=== PATIENT | female | born 2000 | race African-American/Black ===

== ENCOUNTER 2019-03-05 00:35 | Emergency (ER) | payer MEDICAID ==
--- NOTE | 2019-03-05 01:14 | ER Document Report ---
ED GI/ - General Chief Complaint: OB Problem (<20wks) Stated Complaint: VAGINAL BLEEDING Time Seen by Provider: 03/05/19 01:12 Mode of Arrival: Ambulatory Information source: Patient Notes: HISTORY OF PRESENT ILLNESS: Patient is a 18-year-old female at approximately 12 to 14 weeks by last menstrual period with no significant past medical history who presents with lower abdominal cramping with vaginal bleeding and passage of tissues that occurred prior to arrival. Patient reports that she had a miscarriage in September of this year, had similar symptoms but ended up having "miscarriage at home." She reports that she had both bright red blood as well as dark clots and believes she passed tissue into the toilet. Location: Abdomen, pelvis Onset: Prior to arrival Provocation: Unknown Quality: Cramping Radiation: None Severity: Mild to moderate Timing: Resolved LMP: "The middle of November" Associated symptoms: Denies fevers or chills, no nausea or vomiting, no abdominal injuries, no vaginal discharge REVIEW OF SYSTEMS: CONSTITUTIONAL : Denies fever or chills, no sweats. Denies recent illness. EENT: Denies eye, ear, throat, or mouth pain or symptoms. Denies nasal or sinus congestion. CARDIOVASCULAR: Denies chest pain. RESPIRATORY: Denies cough, cold, or chest congestion. Denies shortness of breath, difficulty breathing, or wheezing. GASTROINTESTINAL: Denies abdominal pain. Denies nausea, vomiting, or diarrhea. Denies constipation. GENITOURINARY: Positive for vaginal bleeding and passage of tissues. Denies difficulty urinating, painful urination, burning, frequency, or blood in urine. MUSCULOSKELETAL: Denies neck or back pain or joint pain or swelling. SKIN: Denies rash or skin lesions. HEMATOLOGIC : Denies easy bruising or bleeding. LYMPHATIC: Denies swollen, enlarged glands. NEUROLOGICAL: Denies altered mental status or loss of consciousness. Denies headache. Denies weakness or paralysis or loss of use of either side. Denies problems with gait or speech. Denies sensory or motor loss. PSYCHIATRIC: Denies anxiety or stress or depression. All other systems reviewed and negative. PHYSICAL EXAMINATION: GENERAL: Well-appearing, well-nourished and in no acute distress. HEAD: Atraumatic, normocephalic. No scalp deformity, depression, or crepitance. EYES: Pupils are 3 mm and equal/round/reactive to light, extraocular movements intact, sclera anicteric, conjunctiva are normal. ENT: Nares patent bilaterally, oropharynx clear without exudates or palatal petechia. Moist mucous membranes. No tonsil hypertrophy. NECK: Normal range of motion, supple without lymphadenopathy. LUNGS: Breath sounds present, equal, and clear to auscultation bilaterally. No wheezes, rales, or rhonchi. HEART: Regular rate and rhythm without murmurs, rubs, or gallops. 2+ peripheral pulses. Normal capillary refill. ABDOMEN: Soft, nontender, nondistended. Normoactive bowel sounds. No guarding, no rebound. No masses appreciated. BACK: Normal contour, no midline tenderness. Rectal exam deferred. PELVC: Deferred. EXTREMITIES: Normal range of motion, no pitting or edema. No cyanosis. NEUROLOGICAL: No focal neurological deficits. Moves all extremities spontaneously and on command. PSYCH: Normal mood, normal affect. No suicidal thoughts/ideations. No homicidal thoughts/ideations. No hallucinations. SKIN: Warm, dry, normal turgor, no rashes or lesions noted. ASSESSMENT AND PLAN: This patient is a 18-year-old female who presents with vaginal bleeding and passage of tissues that could represent spontaneous , incomplete versus inevitable versus complete. 1. Will obtain labs, urine, quantitative beta-hCG, and ultrasound. 2. Will reassess. TRAVEL OUTSIDE OF THE [place] IN LAST 30 DAYS: No - HPI Patient complains to provider of: Abdominal pain, , Vaginal bleeding, Vaginal pain Onset: Just prior to arrival Timing/Duration: Sudden Quality of pain: Cramping Severity at maximum: Moderate Severity in ED: Mild Pain Level: Denies Location: Pelvis, Vaginal Vaginal bleeding (Compared to normal period): Vegetable Cutter, Dark brown, Passing tissue Menstrual period history: OB ultrasound done: No vitamins taken: No Sexual history: Active Exacerbated by: Denies, Standing Similar symptoms previously: No Recently seen / treated by doctor: No Past Medical History - General Information source: Patient - Social History Smoking Status: Former Smoker Chew tobacco use (# tins/day): No Frequency of alcohol use: None Drug Abuse: None Lives with: Family Family History: Reviewed & Not Pertinent Patient has suicidal ideation: No Patient has homicidal ideation: No - Past Medical History Cardiac Medical History: Reports: None Pulmonary Medical History: Reports: None EENT Medical History: Reports: None Neurological Medical History: Reports: None Endocrine Medical History: Reports: None Renal/ Medical History: Reports: Other - History of miscarriage Malignancy Medical History: Reports: None GI Medical History: Reports: None Musculoskeletal Medical History: Reports None Skin Medical History: Reports None Psychiatric Medical History: Reports: None Traumatic Medical History: Reports: None Infectious Medical History: Reports: None Surgical Hx: Negative Past Surgical History: Reports: None - Immunizations Immunizations up to date: Yes Hx Diphtheria, Pertussis, Tetanus Vaccination: Yes Review of Systems - Review of Systems Constitutional: No symptoms reported EENT: No symptoms reported Cardiovascular: No symptoms reported Respiratory: No symptoms reported Gastrointestinal: No symptoms reported Genitourinary: No symptoms reported Female Genitourinary: See HPI, , Vaginal bleeding Musculoskeletal: No symptoms reported Skin: No symptoms reported Hematologic/Lymphatic: No symptoms reported Neurological/Psychological: No symptoms reported -: Yes All other systems reviewed and negative Physical Exam - Vital signs Vitals: Temp Pulse Resp BP Pulse Ox 98 F 74 16 116/74 98 03/05/19 00:44 03/05/19 00:44 03/05/19 00:44 03/05/19 00:44 03/05/19 00:44 Interpretation: Normal Course - Re-evaluation Re-evalutation: 03/05/19 04:04 Ultrasound confirms completed . Will discharge the patient home with strict return precautions and follow-up with [facility]. All results were explained to and discussed with the patient, and all questions addressed and answered. The patient voices both understanding and agreeing with the plan. - Vital Signs Vital signs: Temp Pulse Resp BP Pulse Ox 98 F 74 16 116/74 98 03/05/19 00:44 03/05/19 00:44 03/05/19 00:44 03/05/19 00:44 03/05/19 00:44 - Laboratory Result Diagrams: 03/05/19 01:32 03/05/19 01:32 Laboratory results interpreted by me: 03/05/19 03/05/19 01:32 01:32 RDW 15.0 H Lymph % (Auto) 46.7 H Urine Protein 100 H Urine Ketones TRACE H Urine Blood LARGE H Urine Urobilinogen 2.0 H Ur Leukocyte Esterase TRACE H - Diagnostic Test Radiology reviewed: Image reviewed, Reports reviewed Discharge - Discharge Clinical Impression: Spontaneous in first trimester Condition: Good Disposition: HOME, SELF-CARE Instructions: Miscarriage (OM) Additional Instructions: You have been evaluated in the Emergency Department for vaginal bleeding. While here, you had an ultrasound that confirms that she had a miscarriage and it is now safe to be discharged home. Please follow-up with your SH[facility] WORKER as instructed in one week to be rechecked. Return to the Emergency Department if you experience increasing pain, increasing bleeding, or any other concerning symptoms. Print Language: Somali
[2019-03-05 01:44] LABS: ABSOLUTE EOSINOPHILS # (AUTO) 0.1 10^3/uL (0.0-0.6); ABSOLUTE LYMPHOCYTES (AUTO) 2.3 10^3/uL (0.5-4.7); ABSOLUTE MONOCYTES (AUTO) 0.4 10^3/uL (0.1-1.4); ABSOLUTE NEUT (AUTO) 2.2 10^3/uL (1.7-8.2); BASOPHILS % (AUTO) 0.4 % (0-2); EOSINOPHILS % (AUTO) 1.8 % (0-6); HEMATOCRIT 37.1 % (36.0-47.0); HEMOGLOBIN 12.4 g/dL (12.0-15.5); LYMPHOCYTES % (AUTO) 46.7 % (13-45); MEAN CORPUSCULAR HGB CONC 33.3 g/dL (32.0-36.0); MEAN CORPUSCULAR VOLUME 90 fl (80-97); MONOCYTES % (AUTO) 8.2 % (3-13); PLATELET COUNT 246 10^3/uL (150-450); RED BLOOD COUNT 4.12 10^6/uL (3.72-5.28); SEGMENTED NEUTROPHILS % (AUTO) 42.9 % (42-78); TOTAL CELLS COUNTED % (AUTO) 100 %
[2019-03-05 02:02] LABS: ALBUMIN 4.1 g/dL (3.7-5.6); ALKALINE PHOSPHATASE 71 U/L (50-135); ANION GAP 7 (5-19); ASPARTATE AMINO TRANSFERASE 21 U/L (5-30); BILIRUBIN,TOTAL 0.6 mg/dL (0.2-1.3); BLOOD UREA NITROGEN 8 mg/dL (7-20); CARBON DIOXIDE 27 mmol/L (22-30); CHLORIDE 106 mmol/L (98-107); GLUCOSE 105 mg/dL (75-110); POTASSIUM 3.9 mmol/L (3.6-5.0); TOTAL PROTEIN 7.1 g/dL (6.3-8.2)
[2019-03-05 02:08] LABS: APPEARANCE,URINE CLOUDY; BILIRUBIN,URINE NEGATIVE (NEGATIVE); COLOR,URINE AMBER; GLUCOSE, URINE NEGATIVE (NEGATIVE); KETONES,URINE TRACE mg/dL (NEGATIVE); LEUKOCYTE ESTERASE,URINE TRACE (NEGATIVE); NITRITE,URINE NEGATIVE (NEGATIVE); PROTEIN,URINE 100 mg/dL (NEGATIVE); URINE SPECIFIC GRAVITY 1.027
--- NOTE | 2019-03-05 02:35 | RADIOLOGY REPORT (SQ) ---
EXAM: Ultrasound transvaginal CLINICAL DATA: 18-year-old female with abdominal pain. TECHNICAL DATA: Sonographic imaging of the pelvis was performed transvaginally on 03/05/2019 at 1:44 AM COMPARISONS: None FINDINGS: The uterus is normal in size and configuration and measures: 8.7 x 4.9 x 4.1 cm. The cervix measures 3.4 cm in length. There is no evidence of an intrauterine gestational sac. The right ovary is grossly normal in size, shape and echogenicity and measures: 2.1 x 1.4 x 0.9 cm. There is normal pulsed and color Doppler flow to the right ovary. There is a cyst arising from the right ovary containing a thin internal septation. The cyst measures 1.3 x 1.3 x 0.8 cm. There are no right adnexal mass lesions.. The left ovary is grossly normal in size, shape and echogenicity and measures: 2.4 x 0.9 x 0.9 cm. There is normal pulsed and color Doppler flow to the left ovary. The left ovary is grossly normal in echogenicity. There are no left adnexal mass lesions.. There is no free fluid in the pelvis. IMPRESSION: 1. No evidence of an intrauterine gestational sac or complex adnexal mass lesion. 2. There is a simple appearing cyst arising from the right ovary with a maximum dimension of 1.3 cm containing a thin internal septation. 3. Otherwise, unremarkable transvaginal pelvic ultrasound.
[2019-03-05 04:18] VITALS: BP 114/72
== END 2019-03-05 04:18 | disposition home or self-care (01) ==
LOC: ER 00:35
DX: O03.9 Complete or unspecified spontaneous abortion without complication (principal); R10.2 Pelvic and perineal pain; Z87.891 Personal history of nicotine dependence
CPT/HCPCS: 36415; 76817; 80053; 81001; 84702; 85025; 86900; 86901; 99284

== ENCOUNTER 2019-05-28 22:30 | Emergency (ER) | payer MEDICAID ==
[2019-05-28 22:49] VITALS: BP 111/76
== END 2019-05-29 03:21 | disposition left against medical advice (07) ==
LOC: ER 22:30
DX: Z53.21 Procedure and treatment not carried out due to patient leaving prior to being seen by health care provider (principal)

== ENCOUNTER 2019-10-14 20:21 | Emergency (ER) | payer MEDICAID ==
[2019-10-14 20:32] VITALS: BP 110/59
--- NOTE | 2019-10-14 20:56 | ER Document Report ---
ED GI/ - General Chief Complaint: Abdominal Pain Stated Complaint: ABDOMINAL PAIN Time Seen by Provider: 10/14/19 20:31 Primary Care Provider: KALEB WINSTON MD [ACTIVE STAFF] - Follow up as needed Mode of Arrival: Ambulatory Information source: Patient Notes: 19-year-old female presented to ED for complaint of generalized abdominal pain. She states her last menstrual period was the first week of May. She states she called the health department to get a positive so she could apply for Medicaid and they told her that the health department was closed to the the covid virus 19 pandemic. She states she has not had any care and she is about 22 weeks . Patient states she also has not had a recent bowel movement. She does have a ctive bowel sounds throughout. Patient denies any nausea or vomiting. She states sometimes she has some difficulty urinating due to the pressure. She was able to obtain a urine specimen while in the emergency room. She is alert oriented respirations regular nonlabored speaking in full sentences. She did come in by EMS. She states that they will able to see the baby kicking while she was in route. Movement is felt on the left side of her abdomen during the examination. TRAVEL OUTSIDE OF THE [place] IN LAST 30 DAYS: No - HPI Patient complains to provider of: Abdominal pain - Left and right lower abdomen and pelvic area, Onset: Other - She states she does not know when her last bowel movement was. This pain started about an hour before she came to the emergency room Timing/Duration: Gradual, Persistent Quality of pain: Cramping Severity at maximum: Moderate Severity in ED: Moderate Pain Level: 3 Context: Location: LLQ, RLQ, Pelvis Vaginal bleeding (Compared to normal period): None LMP: First week of May : 2 Para: 0 Associated symptoms: denies: Nausea, Vomiting Exacerbated by: Movement Relieved by: Denies Similar symptoms previously: Yes Recently seen / treated by doctor: No - Related Data Allergies/Adverse Reactions: No Known Allergies Allergy (Unverified 10/14/19 20:32) Past Medical History - General Information source: Patient - Social History Smoking Status: Former Smoker Frequency of alcohol use: None Drug Abuse: None Family History: Reviewed & Not Pertinent Patient has homicidal ideation: No - Past Medical History Cardiac Medical History: Reports: None Pulmonary Medical History: Reports: None EENT Medical History: Reports: None Neurological Medical History: Reports: None Endocrine Medical History: Reports: None Renal/ Medical History: Reports: None Malignancy Medical History: Reports: None GI Medical History: Reports: None Musculoskeletal Medical History: Reports None Skin Medical History: Reports None Psychiatric Medical History: Reports: None Traumatic Medical History: Reports: None Infectious Medical History: Reports: None Past Surgical History: Reports: Hx Cholecystectomy - Immunizations Immunizations up to date: Yes Hx Diphtheria, Pertussis, Tetanus Vaccination: Yes Review of Systems - Review of Systems Constitutional: No symptoms reported EENT: No symptoms reported Cardiovascular: No symptoms reported Respiratory: No symptoms reported Gastrointestinal: Abdominal pain Genitourinary: No symptoms reported Female Genitourinary: . denies: Vaginal discharge, Vaginal bleeding Musculoskeletal: No symptoms reported Skin: No symptoms reported Hematologic/Lymphatic: No symptoms reported Neurological/Psychological: No symptoms reported -: Yes All other systems reviewed and negative Physical Exam - Vital signs Vitals: Temp Pulse Resp BP Pulse Ox 98.3 F 84 19 110/59 L 99 10/14/19 20:23 10/14/19 20:23 10/14/19 20:23 10/14/19 20:23 10/14/19 20:23 Interpretation: Normal - General General appearance: Appears well, Alert - HEENT Head: Normocephalic, Atraumatic Eyes: Normal Pupils: PERRL - Respiratory Respiratory status: No respiratory distress Chest status: Nontender Breath sounds: Normal Chest palpation: Normal - Cardiovascular Rhythm: Regular Heart sounds: Normal auscultation Murmur: No - Abdominal Inspection: Gravid female Distension: No distension Bowel sounds: Normal Tenderness: Tender - Lower left and right abdomen Organomegaly: No organomegaly - Back Back: Normal, Nontender - Extremities General upper extremity: Normal inspection, Nontender, Normal color, Normal ROM, Normal temperature General lower extremity: Normal inspection, Nontender, Normal color, Normal ROM, Normal temperature, Normal weight bearing. No: Latrice's sign - Neurological Neuro grossly intact: Yes Cognition: Normal Orientation: AAOx4 Jackson Coma Scale Eye Opening: Spontaneous Aniket Coma Scale Verbal: Oriented Aniket Coma Scale Motor: Obeys Commands Jackson Coma Scale Total: 15 Speech: Normal Motor strength normal: LUE, RUE, LLE, RLE Sensory: Normal - Psychological Associated symptoms: Normal affect, Normal mood - Skin Skin Temperature: Warm Skin Moisture: Dry Skin Color: Normal Course - Vital Signs Vital signs: Temp Pulse Resp BP Pulse Ox 98.3 F 84 19 110/59 L 99 10/14/19 20:23 10/14/19 20:23 10/14/19 20:23 10/14/19 20:23 10/14/19 20:23 - Laboratory Result Diagrams: 10/14/19 20:46 10/14/19 20:46 Laboratory results interpreted by me: 10/14/19 10/14/19 10/14/19 20:46 20:46 20:46 RBC 3.42 L Hgb 11.7 L Hct 32.8 L MCH 34.1 H Sodium 132.9 L Anion Gap 4 L Creatinine 0.45 L Total Protein 6.1 L Albumin 3.3 L Beta HCG, Quant 44996.00 H Urine Urobilinogen 4.0 H Discharge - Discharge Clinical Impression: Abdominal pain during in second trimester Condition: Stable Disposition: HOME, SELF-CARE Additional Instructions: Obtained lab work and sending patient for an ultrasound then she needs to go straight to labor and delivery. Patient is having abdominal pain during . She will be going up to labor and delivery. Patient has not had any care. She states she called [facility] department and they told her that it was close to the public. She explained to them that she was having positive home test and she needed to get in for positive so that she could get her Medicaid. They told her that the health department was closed due to the coronavirus. Referrals: KALEB WINSTON MD [ACTIVE STAFF] - Follow up as needed
[2019-10-14 21:01] LABS: ABSOLUTE EOSINOPHILS # (AUTO) 0.1 10^3/uL (0.0-0.6); ABSOLUTE LYMPHOCYTES (AUTO) 2.2 10^3/uL (0.5-4.7); ABSOLUTE MONOCYTES (AUTO) 0.7 10^3/uL (0.1-1.4); ABSOLUTE NEUT (AUTO) 6.2 10^3/uL (1.7-8.2); BASOPHILS % (AUTO) 0.2 % (0-2); HEMATOCRIT 32.8 % (36.0-47.0); HEMOGLOBIN 11.7 g/dL (12.0-15.5); MONOCYTES % (AUTO) 7.3 % (3-13); TOTAL CELLS COUNTED % (AUTO) 100 %; WHITE BLOOD COUNT 9.2 10^3/uL (4.0-10.5)
[2019-10-14 21:12] LABS: MEAN CORPUSCULAR HEMOGLOBIN 34.1 pg (27.0-33.4); MEAN CORPUSCULAR HGB CONC 35.6 g/dL (32.0-36.0); MEAN CORPUSCULAR VOLUME 96 fl (80-97); PLATELET COUNT 200 10^3/uL (150-450); RED BLOOD COUNT 3.42 10^6/uL (3.72-5.28); RED CELL DISTRIBUTION WIDTH 13.4 % (11.5-14.0); SEGMENTED NEUTROPHILS % (AUTO) 67.5 % (42-78)
[2019-10-14 21:15] LABS: ALBUMIN 3.3 g/dL (3.5-5.0); ALKALINE PHOSPHATASE 71 U/L (38-126); ASPARTATE AMINO TRANSFERASE 16 U/L (14-36); BILIRUBIN,TOTAL 0.4 mg/dL (0.2-1.3); BLOOD UREA NITROGEN 10 mg/dL (7-20); CALCIUM 9.1 mg/dL (8.4-10.2); CARBON DIOXIDE 24 mmol/L (22-30); CHLORIDE 105 mmol/L (98-107); GLUCOSE 82 mg/dL (75-110); POTASSIUM 3.9 mmol/L (3.6-5.0); TOTAL PROTEIN 6.1 g/dL (6.3-8.2)
--- NOTE | 2019-10-14 21:29 | RADIOLOGY REPORT (SQ) ---
EXAM DESCRIPTION: OB ultrasound CLINICAL HISTORY: 19 years Female; Abdominal pain admit menstrual period May TECHNIQUE: Transabdominal obstetrical ultrasound was performed. COMPARISON: None. FINDINGS: Number of fetuses: Single position: Cephalic Amniotic fluid: Single pocket 5.7 x 5.6 cm Cervix: Cervix measures 2.9 cm in length. On one cine run there appears to be funneling of the cervix. On the static image the cervix is closed and no funneling is seen. Placenta: Posterior. Grade 0 HR: 135 bpm Biometry: BPD: 4.84 cm, 20 weeks four days HC: 18.45 cm, 20 weeks six days AC: 16.47 cm, 21 weeks four days FL: 3.63 cm, 21 weeks four days EFW: 422 g HC/AC: 1.12 Composite Gestational Age: 21 weeks one day. Estimated delivery date: 02/23/2020 Anatomy: Stomach, bladder, kidneys and four-chamber heart were seen. IMPRESSION: 1. Single living intrauterine . 2. Estimated gestational age is 21 weeks one day with estimated delivery date of 02/23/2020. 3. Possible intermittent funneling of the cervix.
[2019-10-14 21:36] LABS: ANION GAP 4 (5-19)
[2019-10-14 22:51] LABS: ADD MANUAL MICROSCOPIC YES; APPEARANCE,URINE CLEAR; BILIRUBIN,URINE NEGATIVE (NEGATIVE); COLOR,URINE YELLOW; GLUCOSE, URINE NEGATIVE (NEGATIVE); KETONES,URINE NEGATIVE (NEGATIVE); LEUKOCYTE ESTERASE,URINE NEGATIVE (NEGATIVE); NITRITE,URINE NEGATIVE (NEGATIVE); PROTEIN,URINE NEGATIVE (NEGATIVE); URINE SPECIFIC GRAVITY 1.025
[2019-10-14 22:52] LABS: AMORPHOUS SEDIMENT,UR TRACE
[2019-10-14 23:04] LABS: URINE AMPHETAMINES SCREEN NEGATIVE; URINE BARBITURATES SCREEN NEGATIVE; URINE BENZODIAZEPINES SCREEN NEGATIVE; URINE COCAINE SCREEN NEGATIVE; URINE METHADONE SCREEN NEGATIVE; URINE PHENCYCLIDINE SCREEN NEGATIVE
[2019-10-14 23:08] LABS: URINE MARIJUANA (THC) SCREEN UNCONFIRMED POSITIVE
== END 2019-10-14 21:13 | disposition home or self-care (01) ==
LOC: ER 20:21
DX: O26.892 Other specified pregnancy related conditions, second trimester (principal); R10.84 Generalized abdominal pain; Z3A.22 22 weeks gestation of pregnancy; Z87.891 Personal history of nicotine dependence
CPT/HCPCS: 99284; 36415; 84702; 83690; 85025; 80053; 81001; 80307; 76815; G0480 ×2; 80349

== ENCOUNTER 2019-10-14 21:16 | Outpatient (CLI) | payer MEDICAID ==
[2019-10-14] MEDS ORDERED: HYDROXYZINE PAMOATE 50 MG CAPSULE ONE (22:21)
== END 2019-10-14 23:47 | disposition home or self-care (01) ==
LOC: LC 21:16
PROVIDERS: ATTEND Obstetrics & Gynecology
DX: O26.892 Other specified pregnancy related conditions, second trimester (principal); R10.9 Unspecified abdominal pain; Z3A.21 21 weeks gestation of pregnancy
CPT/HCPCS: 59899; J3490

== ENCOUNTER 2019-11-12 04:47 | Emergency (ER) | payer MEDICAID ==
[2019-11-12 04:58] VITALS: BP 120/76
== END 2019-11-12 07:07 | disposition left against medical advice (07) ==
LOC: ER 04:47
DX: Z53.21 Procedure and treatment not carried out due to patient leaving prior to being seen by health care provider (principal)

== ENCOUNTER 2020-01-19 15:06 | Outpatient (CLI) | payer MEDICAID ==
[2020-01-19 15:47] LABS: APPEARANCE,URINE CLEAR; BILIRUBIN,URINE NEGATIVE (NEGATIVE); COLOR,URINE YELLOW; GLUCOSE, URINE NEGATIVE (NEGATIVE); KETONES,URINE TRACE mg/dL (NEGATIVE); LEUKOCYTE ESTERASE,URINE NEGATIVE (NEGATIVE); NITRITE,URINE NEGATIVE (NEGATIVE); PROTEIN,URINE NEGATIVE (NEGATIVE); URINE SPECIFIC GRAVITY 1.013
[2020-01-19 16:02] LABS: URINE AMPHETAMINES SCREEN NEGATIVE; URINE BARBITURATES SCREEN NEGATIVE; URINE BENZODIAZEPINES SCREEN NEGATIVE; URINE COCAINE SCREEN NEGATIVE; URINE MARIJUANA (THC) SCREEN NEGATIVE; URINE METHADONE SCREEN NEGATIVE; URINE PHENCYCLIDINE SCREEN NEGATIVE
[2020-01-19] MEDS ORDERED: HYDROXYZINE PAMOATE 50 MG CAPSULE ONE ×2 (16:17→16:19)
== END 2020-01-19 16:33 | disposition home or self-care (01) ==
LOC: LC 15:06
PROVIDERS: ATTEND Obstetrics & Gynecology
DX: O47.03 False labor before 37 completed weeks of gestation, third trimester (principal); Z3A.35 35 weeks gestation of pregnancy
CPT/HCPCS: 59025; 81001; 80307; J3490

== ENCOUNTER 2020-02-09 22:37 | Outpatient (CLI) | payer MEDICAID ==
[2020-02-09 23:18] LABS: APPEARANCE,URINE CLEAR; BILIRUBIN,URINE NEGATIVE (NEGATIVE); COLOR,URINE YELLOW; GLUCOSE, URINE NEGATIVE (NEGATIVE); KETONES,URINE NEGATIVE (NEGATIVE); LEUKOCYTE ESTERASE,URINE NEGATIVE (NEGATIVE); NITRITE,URINE NEGATIVE (NEGATIVE); PROTEIN,URINE 30 mg/dL (NEGATIVE); URINE SPECIFIC GRAVITY 1.014
[2020-02-09] MEDS ORDERED: HYDROXYZINE PAMOATE 50 MG CAPSULE ONE (23:39)
[2020-02-09 23:41] LABS: URINE AMPHETAMINES SCREEN NEGATIVE; URINE BARBITURATES SCREEN NEGATIVE; URINE BENZODIAZEPINES SCREEN NEGATIVE; URINE COCAINE SCREEN NEGATIVE; URINE MARIJUANA (THC) SCREEN NEGATIVE; URINE METHADONE SCREEN NEGATIVE; URINE PHENCYCLIDINE SCREEN NEGATIVE
--- NOTE | 2020-02-09 23:56 | Non Stress Test Report ---
Non Stress Test Datetime Report Generated by CPN: 02/09/2020 23:56 DEMOGRAPHIC Test Number: 1 EGA NST: 38.0 EGA NST: 35.0 INDICATION Indication for Study (NST) Other: gestational age greater than 32 weeks Indication for Study (NST) Other: provider orders VITAL SIGNS Temperature - NST: 96.9 Temperature - NST: 98.2 Pulse - NST: 87 Pulse - NST: 111 RESP - NST: 17 RESP - NST: 18 NBPSYS NST: 111 NBPSYS NST: 105 NBPDIA NST: 69 NBPDIA NST: 63 URINE RESULTS Urine Protein, NST: Positive Urine Ketones - NST: Negative Urine Glucose - NST: Negative Urine Blood - NST: Negative MONITORING Monitor Explained: Monitor Explained; Test Explained; Patient Verbalized Understanding Monitor Explained: Monitor Explained; Test Explained; Patient Verbalized Understanding Time on Monitor: 02/09/2020 22:56 Time on Monitor: 01/19/2020 15:27 Time off Monitor: 02/09/2020 23:37 Time off Monitor: 01/19/2020 16:18 NST INTERVENTIONS NST Interventions: PO Hydration; Reposition Patient NST Interventions: PO Hydration Physician Notified NST: DrSusan Reilly Physician Notified NST: Dr Olvin BABY A: [id number] BABY A Movement : Present Movement : Present Contraction Frequency : 1-7 Contraction Frequency : irregular FHR Baseline : 125 FHR Baseline : 120 Accelerations : 15X15 Accelerations : 15X15 Decelerations : None Decelerations : None Variability : Moderate 6-25bpm Variability : Moderate 6-25bpm NST Review: Meets Criteria for Reactive NST NST Review: Meets Criteria for Reactive NST NST Review and Verified By : Kayla Siegel RN NST Results: Reactive NST Results: Reactive NST REPORT Report Trigger: Send Report
[2020-02-09] MEDS ORDERED: HYDROXYZINE PAMOATE 50 MG CAPSULE PO ONE (23:59)
== END 2020-02-09 23:49 | disposition home or self-care (01) ==
LOC: LC 22:37
PROVIDERS: ATTEND Obstetrics & Gynecology Gynecology
DX: O47.1 False labor at or after 37 completed weeks of gestation (principal); O99.333 Smoking (tobacco) complicating pregnancy, third trimester; F17.210 Nicotine dependence, cigarettes, uncomplicated; Z3A.38 38 weeks gestation of pregnancy
CPT/HCPCS: 59025; 81005; 80307; 84112; J3490

== ENCOUNTER 2020-02-16 15:49 | Outpatient (CLI) | payer MEDICAID ==
--- NOTE | 2020-02-17 01:24 | RADIOLOGY REPORT (SQ) ---
EXAM DESCRIPTION: US BIOPHYSICAL PROFILE WITHOUT NON STRESS TEST COMPLETED DATE/TME: 02/16/2020 16:32 CLINICAL HISTORY: 19 years, Female, iup 39 weeks nonreactive nst COMPARISON: None. TECHNIQUE: Emergent biophysical profile LIMITATIONS: None. FINDINGS: breathing, tone, movement, amniotic fluid volume score 2 of, for a total biophysical profile score 8 of 8. IMPRESSION: biophysical profile score 8 of 8. copyright 2010 [employer] [employer]- All Rights Reserved
== END 2020-02-16 17:09 | disposition home or self-care (01) ==
LOC: LC 15:49
PROVIDERS: ATTEND Obstetrics & Gynecology
DX: O99.333 Smoking (tobacco) complicating pregnancy, third trimester (principal); F17.210 Nicotine dependence, cigarettes, uncomplicated; O09.33 Supervision of pregnancy with insufficient antenatal care, third trimester; Z3A.39 39 weeks gestation of pregnancy
CPT/HCPCS: 59025; 76819

== ENCOUNTER 2020-02-21 09:41 | Inpatient (IN) | payer MEDICAID ==
[2020-02-21 10:18] LABS: APPEARANCE,URINE CLEAR; BILIRUBIN,URINE NEGATIVE (NEGATIVE); COLOR,URINE YELLOW; GLUCOSE, URINE NEGATIVE (NEGATIVE); KETONES,URINE NEGATIVE (NEGATIVE); LEUKOCYTE ESTERASE,URINE TRACE (NEGATIVE); NITRITE,URINE NEGATIVE (NEGATIVE); PROTEIN,URINE NEGATIVE (NEGATIVE); URINE SPECIFIC GRAVITY 1.011
--- NOTE | 2020-02-21 10:29 | Non Stress Test Report ---
Non Stress Test Datetime Report Generated by CPN: 02/21/2020 10:29 DEMOGRAPHIC Test Number: 1 EGA NST: 39.5 EGA NST: 39.0 INDICATION Indication for Study (NST) Other: IUP 39.5 ctx Indication for Study (NST) Other: provider orders VITAL SIGNS Temperature - NST: 99.5 Pulse - NST: 93 RESP - NST: 16 NBPSYS NST: 105 NBPDIA NST: 61 MONITORING Monitor Explained: Monitor Explained; Test Explained; Patient Verbalized Understanding Monitor Explained: Monitor Explained; Test Explained; Patient Verbalized Understanding Time on Monitor: 02/21/2020 09:54 Time on Monitor: 02/16/2020 15:58 Time off Monitor: 02/21/2020 10:28 Time off Monitor: 02/16/2020 16:39 NST Duration: 34 NST Duration: 41 NST INTERVENTIONS NST Interventions: PO Hydration NST Interventions: PO Hydration; Reposition Patient Physician Notified NST: Dr. Fuentes Physician Notified NST: [id number] BABY A: [id number] BABY A Movement : Present Movement : Present Contraction Frequency : 3-5 Contraction Frequency : irregular FHR Baseline : 115 FHR Baseline : 125 Accelerations : 15X15 Accelerations : 15X15 Decelerations : None Decelerations : None Variability : Moderate 6-25bpm Variability : Moderate 6-25bpm NST Review: Meets Criteria for Reactive NST NST Review: Meets Criteria for Reactive NST NST Review and Verified By : Adrian Brown RN NST Results: Reactive NST Results: Reactive NST REPORT Report Trigger: Send Report
[2020-02-21 10:38] LABS: URINE AMPHETAMINES SCREEN NEGATIVE; URINE BARBITURATES SCREEN NEGATIVE; URINE BENZODIAZEPINES SCREEN NEGATIVE; URINE COCAINE SCREEN NEGATIVE; URINE MARIJUANA (THC) SCREEN NEGATIVE; URINE METHADONE SCREEN NEGATIVE; URINE PHENCYCLIDINE SCREEN NEGATIVE
[2020-02-21] MEDS: RINGERS SOLUTION,LACTATED 1,000 ML IV PRN ×5 (12:49→22:39)
[2020-02-21 13:01] LABS: ABSOLUTE EOSINOPHILS # (AUTO) 0.1 10^3/uL (0.0-0.6); ABSOLUTE LYMPHOCYTES (AUTO) 1.8 10^3/uL (0.5-4.7); ABSOLUTE MONOCYTES (AUTO) 0.7 10^3/uL (0.1-1.4); ABSOLUTE NEUT (AUTO) 4.9 10^3/uL (1.7-8.2); BASOPHILS % (AUTO) 0.4 % (0-2); EOSINOPHILS % (AUTO) 1.2 % (0-6); HEMATOCRIT 37.8 % (36.0-47.0); HEMOGLOBIN 13.4 g/dL (12.0-15.5); LYMPHOCYTES % (AUTO) 24.3 % (13-45); MEAN CORPUSCULAR HEMOGLOBIN 33.1 pg (27.0-33.4); MEAN CORPUSCULAR HGB CONC 35.5 g/dL (32.0-36.0); MEAN CORPUSCULAR VOLUME 93 fl (80-97); MONOCYTES % (AUTO) 8.9 % (3-13); PLATELET COUNT 181 10^3/uL (150-450); RED BLOOD COUNT 4.05 10^6/uL (3.72-5.28); SEGMENTED NEUTROPHILS % (AUTO) 65.2 % (42-78); TOTAL CELLS COUNTED % (AUTO) 100 %; WHITE BLOOD COUNT 7.5 10^3/uL (4.0-10.5)
[2020-02-21] MEDS ORDERED: EPHEDRINE SULFATE INJ 50 MG/1 ML AMPULE ONE (13:50)
[2020-02-21] MEDS ORDERED: OXYTOCIN 10 UNIT/ML VIAL ONE ×2 (13:50→23:37)
[2020-02-21] MEDS ORDERED: MISOPROSTOL 0.2 MG TABLET ONE (13:50)
[2020-02-21] MEDS ORDERED: ROPIVACAINE HCL 0.2% INJ/PF (2 MG/ML) 20 ML SDV ONE (13:51)
[2020-02-21] MEDS ORDERED: FENTANYL/BUPIVACAINE/NS/PF 300 MCG/150 ML RTUINJ EPI ONE (13:51)
[2020-02-21] MEDS ORDERED: OXYTOCIN/0.9 % SODIUM CHLORIDE 30 UNIT/500 ML RTUINJ ONE ×2 (13:51→23:37)
[2020-02-21] MEDS ORDERED: LIDOCAINE 1% INJ-PF (10 MG/ML) 30 ML SDV ONE ×2 (13:51→13:55)
--- NOTE | 2020-02-21 13:57 | Admission Physical ---
Datetime Report Generated by CPN: 02/21/2020 13:56 CURRENT ADMISSION Chief Complaint: Uterine Contractions Admit Impression : Term, Intrauterine ; Active Labor Admit Plan: Admit to Unit; Initiate Labor Protocol ALLERGIES Medication Allergies: No Medication Allergies: No Known Allergies (02/21/2020) Latex: No Latex Allergies Food Allergies: no Environmental Allergies: no OBSTETRICAL HISTORY EDC: 02/23/2020 00:00 : 2 Para: 0 Term: 0 : 0 SAB: 1 IAB: 0 Ectopic: 0 Cesareans: 0 VBACs: 0 Multiple Births: 0 Gestational Diabetes: No Rh Sensitization: No Incompetent Cervix: No JAI: No Infertility: No ART Treatment: No Uterine Anomaly: No IUGR: No Hx Previous C/S: No Macrosomia: No Hx Loss/Stillborn: No PIH: No Hx : No Placenta Previa/Abruption: No Depression/PP Depression: No PTL/PROM: No Post Hemorrhage: No Current Procedures: Ultrasound; NST Obstetrical History Comments: 2018- 4 months 2018- 5 months G3- Current SEE RECORDS Alcohol: No Marijuana : No Cocaine: No Other Illicit Drugs: No Cigarettes: Current Some Day Smoker. 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 Heart Disease: No Hosp/Surgery: Yes Autoimmune Disorder: No Anesthetic Complications: No Kidney Disease: No Abnormal Pap Smear: No Neuro/Epilepsy: No Psychiatric Disorders: No Other Medical Diseases: No Hepatitis/Liver Disease: No Significant Family History: No Varicosities/Phlebitis: No Trauma/Violence : No Thyroid Dysfunction: No Medical History Comments: galbladder in 2015 INFECTIOUS HISTORY Gonorrhea: No Genital Herpes: No Chlamydia: No Tuberculosis: No Syphilis: No Hepatitis: No HIV/AIDS Exposure: No Rash or Viral Illness: No HPV: No PHYSICAL EXAM General: Normal HEENT: Normal Neurologic: Normal Thyroid: Normal Heart: Normal Lungs: Normal Breast: Normal Back: Normal Abdomen: Normal Genitourinary Exam: Normal Extremities: Normal DTRs: Normal Pelvic Type: Adequate Vital Signs: Reviewed; Within Normal Limits VAGINAL EXAM Dilatation: 5 Effacement: 75 Station: -1 Contraction Comments: Regular MEMBRANES Membranes: Intact FETUS A EGA: 39.5 Monitoring: External US FHR- Baseline: 115 Variability: Moderate 6-25bpm Accelerations: 15X15 Decelerations: None FHR Category: Category I Presentation: Vertex Admit Comment: at 39,5 wks in active labor -Cervical change in triage from 1 cm to 5 cm -Admit to LDR -NPO and IVFs -CEFM and toco -GBS negative -Desires epidural when needed for pain management -Anticipate PLANS FOR LABOR AND DELIVERY Labor and Delivery: None Other Pain Management Plans: IV pain meds if needed Feeding Preference: Formula Circumcision: N/A INFORMED CONSENT Informed Consent Obtained: Vaginal Delivery; Section Delivery; Vacuum/Forceps Assist; Risks, Benefits and Alternatives Discussed Signature: with User ID: Denise : with User ID: Denise
--- NOTE | 2020-02-21 14:57 | Warning Signs in Babies ---
VOD Warning Signs Datetime Report Generated by [facility]: 02/21/2020 14:57 VOD#608 -Warning Signs in Babies: Viewed with Parent(s)/Family (02/21/2020 14:56:Matt Fuller RN)
[2020-02-21] MEDS ORDERED: DINOPROSTONE 10 MG VAGINAL INSERT.SR ONE (20:59)
[2020-02-21] MEDS ORDERED: DINOPROSTONE 10 MG VAGINAL INSERT.SR PV ONE (21:50)
[2020-02-21] MEDS ORDERED: CEFAZOLIN 2 GM/D5W RTU 2 GM/50 ML RTUPB IV ONE (23:19)
[2020-02-21] MEDS ORDERED: CITRIC ACID/SODIUM CITRATE ORAL SOLN 15 ML UDCUP ONE (23:19)
[2020-02-21] MEDS ORDERED: FENTANYL CITRATE INJ/PF 100 MCG/2 ML AMPUL ONE (23:37)
[2020-02-21] MEDS ORDERED: KETAMINE HCL INJ 500 MG/10 ML VIAL ONE (23:37)
[2020-02-21] MEDS ORDERED: LIDOCAINE 2% INJ-PF (20 MG/ML) 10 ML AMPUL ONE (23:37)
[2020-02-21] MEDS ORDERED: KETOROLAC TROMETHAMINE INJ/PF 30 MG/1 ML SDV ONE (23:37)
[2020-02-21] MEDS ORDERED: ACETAMINOPHEN 1,000 MG/100 ML RTUPB IV ONE (23:38)
[2020-02-21] MEDS ORDERED: ONDANSETRON HCL INJ/PF 4 MG/2 ML SDV ONE (23:38)
[2020-02-21] MEDS ORDERED: PROMETHAZINE HCL INJ 25 MG/1 ML VIAL IV PRN (23:39)
[2020-02-21] MEDS ORDERED: MEASLES,MUMPS&RUBELLA VACC/PF 0.5 ML VIAL SUBCUT PRN (23:39)
[2020-02-21] MEDS ORDERED: OXYCODONE-ACETAMINOPHEN 5-325 MG TABLET PO PRN (23:39)
[2020-02-21] MEDS ORDERED: DIPH/PERTUSS(ACELL)/TETANUS VAC/PF 0.5 ML SYR (>=10YO) IM PRN (23:39)
[2020-02-21] MEDS ORDERED: RINGERS SOLUTION,LACTATED 1,000 ML IV PRN (23:39)
[2020-02-21] MEDS ORDERED: ACETAMINOPHEN 325 MG TABLET PO PRN (23:39)
[2020-02-21] MEDS ORDERED: OXYTOCIN/0.9 % SODIUM CHLORIDE 30 UNIT/500 ML RTUINJ IV PRN (23:39)
[2020-02-21] MEDS ORDERED: HYDROMORPHONE HCL INJ/PF 2 MG/ML AMPULE IV PRN (23:39)
[2020-02-22] MEDS ORDERED: MIDAZOLAM 2 MG/2 ML INJ ONE (00:14)
[2020-02-22] MEDS ORDERED: OXYTOCIN 10 UNIT/ML VIAL ONE (00:17)
[2020-02-22] MEDS ORDERED: FENTANYL CITRATE INJ/PF 100 MCG/2 ML AMPUL ONE ×2 (00:30→02:20)
[2020-02-22] MEDS ORDERED: MORPHINE SULFATE 10 MG/ML INJ ONE (01:10)
--- NOTE | 2020-02-22 01:19 | Operative Report ---
Operative Report DATE OF SURGERY: 02/21/20 PREOPERATIVE DIAGNOSIS: Intrauterine at 39.5 wks EGA -active labor. Non-reassuring heart tracting-recurrent late decels remote from delivery POSTOPERATIVE DIAGNOSIS: Same as above OPERATION: Primary section SURGEON: MARYAM ALCANTARA ANESTHESIA: Spinal TISSUE REMOVED OR ALTERED: Placenta COMPLICATIONS: NOne ESTIMATED BLOOD LOSS: 900cc INTRAOPERATIVE FINDINGS: NOrmal appearing uterus, bilateral fallopian tubes and ovaries. Clear amniotic fluid and viable female infant. Placenta grossly normal. PROCEDURE: IV fluids: per anesthesia record Urinary output: 250 cc Findings: Normal-appearing uterus bilateral fallopian tubes and ovaries. Placenta grossly normal. Viable female . Position: To recovery room in stable condition Description of procedure: The patient was taken to the operating room and spinal anesthesia was administered and found to be adequate. She was then placed on the OR table in the supine position with a slight leftward tilt. Patient was prepped and draped in usual sterile fashion. Ancef 2 gms was given IV prior to the procedure for infection prophylaxis. Timeout was taken. A Pfannenstiel skin incision was then made approximately 3 cm above the pubic symphysis and carried down to level the rectus fascia. The rectus fascia was then nicked in the midline with a scalpel and the fascial incision was extended laterally with use of curved Campo scissors. The rectus fascia was then grasped with 2 Kocker clamps elevated and the underlying rectus muscle was dissected off both bluntly and sharply. Any bleeding controlled with cautery. The rectus muscles were then split in the midline and the peritoneum was entered. The peritoneal incision was then extended by manually stretching the peritoneum. The bladder blade was positioned. The bladder was noted to be out of harm's way. A scalpel was then used in the lower uterine for the hysterotomy, slowly until amniotomy was obtained a small amount of clear fluid was noted. The uterine incision was then manually stretched. The infant was noted to be in vertex postion: transverse iwth occiput maternal left -deep in the pelvis. Using a hand deep in pelvis and a sterile assist from below, the head was elevated and brought to the hysterotomy incision. During delivery, the area above lower uterine segment felt thick and tonic making delivery of the head difficult. Once head delivered, the shoulders and the rest of the body followed immediately. The cord was cut clamped and the was handed off to the nurse awaiting. Infant was crying prior to hand off. The placenta was manually delivered. Using a lap gauze the uterus was cleared of all clots and debris. An jennifer retractor was placed to facilitate closure of uterus. The bladder blade was repositioned. The uterine incision with a small extension on the right ( approximately 1 cm toward cervix) was then closed with 0 Chromic suture in a running locked fashion. A second layer of the same suture was used in a running locked imbricated fashion. The uterine incision was inspected and noted to be hemostatic. Retractor was removed. The posterior aspect of the uterus was then inspected and anatomy was seen as above. Warm saline irrigation was used to clear all clots and debris from the abdomen. The uterine incision was inspected once more and noted to remain hemostatic. The bladder blade was removed and the peritoneum was closed with 2-0 chromic in a running fashion. The rectus muscles were then reapproximated and the rectus fascia was closed with a #0 looped PDS in a running fashion. The subcutaneous tissue was then inspected and any bleeding was controlled with Bovie electrocautery. The subcutaneous tissue was then closed with 2-0 Plain Gut suture in a running fashion. The skin was then closed with 4-0 Monocryl in a running subcuticular fashion. The skin incision was then clean dried and Dermabond was applied over the skin incision. All instrument sponge and needle counts were correct x3 for the procedure the patient tolerated the procedure well. She will proceed to recovery room in stable condition
--- NOTE | 2020-02-22 01:23 | PDOC DELIVERY SUMMARY ---
Delivery Summary - Maternal Hx : I Hx Para: 0 Gestational Age: 39.4 - Delivery Heart Rate Monitoring: Externally Uterine Contraction Monitoring: External Pattern: Late Decels Support Person Present: Yes Location: OR : Emergency Placenta: Within Normal Limits Number of Vessels (Cord): 3 Estimated Blood Loss: 900 - Medications Type of Anesthesia:: Spinal - Delivery Personnel MD: MARYAM ALCANTARA
--- NOTE | 2020-02-22 02:52 | Birth Certificate Data ---
Cert Data Datetime Report Generated by CPRene: 02/22/2020 02:51 CERTIFICATE DATA 47a. Care: No (10/14/2019 22:00:Rose Garcia RN) 47b. Date of First Visit: 10/14/2019 00:00 (10/14/2019 22:00:Rose Garcia RN) 47c. Date of Last Visit: 02/04/2020 00:00 (10/14/2019 22:00:Rose Garcia RN) 47d. Number of Visits: 7 (10/14/2019 22:00:Rose Garcia RN) 48a. Number of Prev Live Births: 0 (10/14/2019 22:00:Rose Garcia RN) 48b. Now Livin (10/14/2019 22:00:Matt Fuller RN) 48c. Live Births Now : 0 (10/14/2019 22:00:QS system process) 48d. Date of Last Live : 03/05/2019 00:00 (10/14/2019 22:00:Matt Fuller RN) 48e. Losses: 2 (10/14/2019 22:00:Matt Fuller RN) RISK FACTORS IN THIS 49a. Diabetes: No (10/14/2019 22:00:Ricardo Rg RN) 49b. Hypertension: No (10/14/2019 22:00:Ricardo Rg RN) 49c. Previous Births: 0 (10/14/2019 22:00:Rose Garcia RN) 49d. Stillborns: No (10/14/2019 22:00:Ricardo Rg RN) 49d. IUGR: No (10/14/2019 22:00:Ricardo Rg RN) 49e. Infertility Treatment: No (10/14/2019 22:00:Ricardo Rg RN) 49f. Previous Cesareans: 0 (10/14/2019 22:00:Rose Garica RN) Mother's Height 50b. Height Inches: 65 (02/09/2020 22:46:QS system process) Mother's Weight 51a. Pre- Weight (lbs): 120 (10/14/2019 22:00:Rose Garcia RN) 51b. Weight at Delivery (lbs): 161 (02/22/2020 00:41:QS system process) 52. Dt Last Normal Menses Began: 05/13/2019 00:00 (10/14/2019 22:00:Rose Garcia RN) Infections Present/Treated 53a. Gonorrhea: No (10/14/2019 22:00:Ricardo Rg RN) Results this Hospital Visit : Negative (10/14/2019 22:00:Monica Samuel RN) 53b. Syphilis: No (10/14/2019 22:00:Ricardo Rg RN) 53c. Chlamydia: No (10/14/2019 22:00:Ricardo Rg RN) Results this Hospital Visit: Negative (10/14/2019 22:00:Monica Samuel RN) 53d. Hepatitis B: No (10/14/2019 22:00:Ricardo Rg RN) Results this Hospital Visit: Negative (10/14/2019 22:00:Monica Samuel RN) 53e. Hepatitis C: Negative (10/14/2019 22:00:Matt Fuller RN) 53h. Mother Tested for HBsAG: Yes (10/14/2019 22:00:Matt Fuller RN) 53i. Date Tested: 10/23/2019 00:00 (10/14/2019 22:00:Matt Fuller RN) 53j. Test Result: Negative (10/14/2019 22:00:Monica Samuel RN) Obstetric Procedures 54a, b, c. Obstetric Procedures: Ultrasound; NST (10/14/2019 22:00:Ricardo Rg RN) Cigarette Smoking Cigarette Smoking: Former Smoker. [id number] (10/14/2019 22:00:Matt Fuller RN) 55a. 3 Months Before Preg - Ci (10/14/2019 22:00:Ricardo Rg RN) 55b. 1st Trimester of Preg- Ci (10/14/2019 22:00:Ricardo Rg RN) 55c. 2nd Trimester of Preg- Ci (10/14/2019 22:00:Ricrado Rg RN) 55d. 3rd Trimester of Preg- Ci (10/14/2019 22:00:Matt Fuller RN) Onset of Labor 56a. PROM >12 Hrs: 0.10 (10/14/2019 22:00:QS system process) 56b. Precipitous Labor <3 Hrs: 12 (10/14/2019 22:00:QS system process) 56c. Prolonged Labor > 20 Hrs: 12 (10/14/2019 22:00:QS system process) 57a. Induction of Labor: N/A (10/14/2019 22:00:Renuka Roper RN) 57a. Induction of Labor: Cervidil (02/21/2020 21:05:Morgan Smith RN) 57a. Induction of Labor: cervidil removed due to decelerations (02/21/2020 22:51:Renuka Roper RN) 57c. Non-Vertex Presentation A: Vertex (10/14/2019 22:00:Morgan Smith RN) 57d. Steroids - Lung Mat: None (10/14/2019 22:00:Morgan Smith RN) 57d. Steroids - Lung Mat: Not Applicable (10/14/2019 22:00:Morgan Smith RN) 57f. Mat Chorio or Temp >100.4: 98.4 (10/14/2019 22:00:Morgan Smith RN) 57g. Moderate/Heavy Meconium: Clear (10/14/2019 22:00:Morgan Smith RN) 57h. Intolerance of Labor: Nonreassuring Status (10/14/2019 22:00:Morgan Smith RN) 57i. Epidural/Spinal Anesthesia: Epidural (10/14/2019 22:00:Morgan Smith RN) Method of Delivery 58a. Forceps - Unsuccessful A: N/A (10/14/2019 22:00:Morgan Smith RN) 58b. Vacuum - Unsuccessful A: Successful (10/14/2019 22:00:Morgan Smith RN) 58c. Presentation at 58c. Presentation at - A : Vertex (10/14/2019 22:00:Morgan Smith RN) 58c. Presentation at - A : N/A (10/14/2019 22:00:Morgan Smith RN) 58c. Presentation at - A : Cephalic (02/21/2020 21:05:Morgan Smith RN) Final Route and Method of Del 58d. Baby A Route/Delivery: (10/14/2019 22:00:Morgan Smith RN) 58e. Trial of Labor Attempted: No (10/14/2019 22:00:Morgan Smith RN) 58e. Trial of Labor Attempted A: N/A (10/14/2019 22:00:Morgan Smith RN) 58e. Trial of Labor Attempted B: N/A (10/14/2019 22:00:Morgan Smith RN) Maternal Morbidity 59b. 3rd or 4th Degree Lacs: None (10/14/2019 22:00:Morgan Smith RN) Birthweight Baby A: 3585 (10/14/2019 22:00:Morgan Smith RN) 60a. Pounds : 7 (10/14/2019 22:00:QS system process) 60b. Ounces: 14 (10/14/2019 22:00:QS system process) 61. GA at Delivery Baby A: 39.6 (10/14/2019 22:00:Morgan Smith RN) : Full Term- 39- 40.6 Weeks (10/14/2019 22:00:QS system process) 62a. 5 Minute Baby A: 9 (10/14/2019 22:00:QS system process)
--- NOTE | 2020-02-22 02:52 | Delivery Summary ---
Del Sum A-C Datetime Report Generated by CPN: 02/22/2020 02:51 DELIVERY PERSONNEL DELIVERY PERSONNEL: [id number] Delivery Doctor:: Lidia Fuentes MD STREET VENDOR:: Zenaida Bailon CRNA Labor and Delivery Nurse:: Morgan Smith RN Labor and Delivery Nurse:: Renuka Roper RN Solar Photovoltaic Installer:: Morgan Smith RN Neonatal Nurse Practitioner:: LYUDMILA Mike Nursery Nurse:: Ryanne Rocha RN Nursery Nurse:: Emily Rivera RN Regional Merchandising Manager/CRIME SCENE PHOTOGRAPHER: ST Tar[place] Regional Merchandising Manager/CRIME SCENE PHOTOGRAPHER: Leah Breen CLEANER MATERNAL INFORMATION Delivery Anesthesia: Epidural Medications After Delivery: Pitocin 30 Units in 500ml NS/D5W Delivery QBL: 1074 Maternal Complications: None LABOR SUMMARY EDC: 02/23/2020 00:00 No. Babies in Womb: 1 Attempted: No Labor Anesthesia: Epidural LABOR INFORMATION Reason for Induction: Not Applicable Onset of Labor: 02/21/2020 11:51 Cervical Ripening Agents: Cervidil Other Ripening Agents: cervidil removed due to decelerations Oxytocin: N/A Group B Beta Strep: Negative Steroids Given: None Reason Steroids Not Administered: Not Applicable MEMBRANES Membranes Rupture Method: Artificial Rupture of Membranes: 02/22/2020 00:06 Length of Rupture (hr): 0.10 Amniotic Fluid Color: Clear Amniotic Fluid Amount: Small Amniotic Fluid Odor: Normal STAGES OF LABOR Stage 3 hr: 0 Stage 3 min: 1 Total Time in Labor hr: 12 Total Time in Labor min: 22 VAGINAL DELIVERY Episiotomy: None Laceration #1: None Laceration Extension #1: N/A Laceration Repair: Not Applicable Sponge Count Correct: N/A Sharps Count Correct: N/A CSECTION DELIVERY Primary Indication: Nonreassuring Status CSection Urgency: Non-Scheduled CSection Incidence: Primary Labor: Labor Elective: Nonelective CSection Incision: Lower Uterine Transverse BABY A INFORMATION Delivery Date/Time: 02/22/2020 00:12 Method of Delivery: Nurse Controlled Delivery: No Born in Route : No : N/A Forceps: N/A Vacuum Extraction: Successful Shoulder Dystocia : No PRESENTATION/POSITION BABY A Presentation: Cephalic Cephalic Presentation: Vertex Vertex Position: Left Occipital Anterior Breech Presentation: N/A PLACENTA INFORMATION BABY A Placenta Delivery Time : 02/22/2020 00:13 Placenta Method of Delivery: Manual Removal Placenta Status: Delivered SCORES BABY A Heart Rate 1 min: >100 bpm Resp Effort 1 min: Good Cry Reflex Irritability 1 min: Cough or Sneeze or Pulls Away Muscle Tone 1 min: Active Motion Color 1 min: Blue/Pale Resuscitation Effort 1 min: Tactile Stimulation SCORE 1 MIN: 8 Heart Rate 5 min: >100 bpm Resp Effort 5 min: Good Cry Reflex Irritability 5 min: Cough or Sneeze or Pulls Away Muscle Tone 5 min: Active Motion Color 5 min: Body Malott, Extremities Blue Resuscitation Effort 5 min: Tactile Stimulation SCORE 5 MIN: 9 INFANT INFORMATION BABY A Gestational Age at Delivery: 39.6 Gestational Status: Full Term- 39- 40.6 Weeks Infant Outcome : Liveborn Condition : Stable Sex: Female IDENTIFICATION BABY A Infant Verification Date/Time: 02/22/2020 00:44 ID Band Number: [id number] Mother's Name Verified: Yes Infant RN Verifying : Kait Smith RN/ S. Aj RN WEIGHT/LENGTH BABY A Birthweight (gm): 3585 Infant Weight (lb): 7 Infant Weight (oz): 14 Infant Length (in): 20.00 Length (cm): 50.80 CORD INFORMATION BABY A No. Cord Vessels: 3 Nuchal Cord : N/A Cord Blood Taken: N/A Infant Suction: Mouth; Nose ASSESSMENT BABY A Infant Complications: Multiple Late Decels; Multiple Variable Decels Physical Findings at Delivery: Other Physical Findings- Other: see nursery assessment Respirations: Appears Normal Skin to Skin: No Fish Net Maker/ALS Called : No Infant Care By: Ryanne Rocha RN Transferred To: [facility] BABY B INFORMATION : N/A
[2020-02-22] MEDS: IBUPROFEN 800 MG TABLET PO SCH ×3 (07:12→21:18)
[2020-02-22 07:38] LABS: HEMATOCRIT 30.8 % (36.0-47.0); MEAN CORPUSCULAR HEMOGLOBIN 33.6 pg (27.0-33.4); MEAN CORPUSCULAR HGB CONC 35.6 g/dL (32.0-36.0); MEAN CORPUSCULAR VOLUME 94 fl (80-97); PLATELET COUNT 133 10^3/uL (150-450); RED BLOOD COUNT 3.27 10^6/uL (3.72-5.28); RED CELL DISTRIBUTION WIDTH 16.5 % (11.5-14.0); WHITE BLOOD COUNT 7.9 10^3/uL (4.0-10.5)
[2020-02-22] MEDS ORDERED: KETOROLAC TROMETHAMINE INJ/PF 30 MG/1 ML SDV IV ONE (08:00)
[2020-02-22] MEDS: DOCUSATE SODIUM 100 MG CAPSULE PO SCH ×2 (09:33→17:50)
[2020-02-22] MEDS: PRENATAL VITAMIN W DHA CAPSULE PO SCH (09:49)
--- NOTE | 2020-02-22 11:01 | PDOC PROGRESS REPORT ---
Subjective-OB Progress Note for:: 02/22/20 Subjective: Doing well, per hsb, sleeping, he states pain is better Physical Exam (OB) Vital Signs: Temp Pulse Resp BP Pulse Ox 98.4 F 95 18 100/54 L 100 02/22/20 07:48 02/22/20 07:48 02/22/20 07:48 02/22/20 07:48 02/22/20 07:48 Intake & Output 02/21/20 02/22/20 02/23/20 06:59 06:59 06:59 Intake Total 1229 Output Total 500 Balance 1229 -500 Weight 72.688 kg - Dressing Removed: No Incision: Well Approximated Closure Type: Surgical Glue - Maternal Morbidity 59. Maternal Morbidity (serious complications experinced by the mother asso ciated with labor and delivery: None of the above - Lochia Lochia Amount: Small 10-25 ml Lochia Color: Rubra/Red - Abdomen Description: Tender, Soft Hernia Present: No Fundal Description: Firm, Midline Fundal Height: u/u - u/2 Objective-Diagnostic Laboratory: 02/22/20 07:21 02/21/20 02/21/20 02/22/20 12:49 12:49 07:21 WBC 7.5 7.9 RBC 4.05 3.27 L Hgb 13.4 11.0 L D Hct 37.8 30.8 L MCV 93 94 MCH 33.1 33.6 H MCHC 35.5 35.6 RDW 17.0 H 16.5 H Plt Count 181 133 L Seg Neutrophils % 65.2 Blood Type O POSITIVE Antibody Screen NEGATIVE Assessment and Plan(PN) - Assessment and Plan (1) Non-reassuring heart rate or rhythm affecting management of fetus Is this a current diagnosis for this admission?: Yes (2) delivery, delivered, current hospitalization Is this a current diagnosis for this admission?: Yes - Time Spent with Patient Time with patient: Less than 15 minutes Medications reviewed and adjusted accordingly: Yes - Disposition Anticipated Discharge Disposition: Home, Self Care Anticipated Discharge Timeframe: within 24 hours
[2020-02-22] MEDS: SIMETHICONE 80 MG TAB.CHEW PO PRN (17:50)
[2020-02-22] MEDS: OXYCODONE-ACETAMINOPHEN 5-325 MG TABLET PO PRN (17:58)
[2020-02-23] MEDS: IBUPROFEN 800 MG TABLET PO SCH ×3 (05:36→22:06)
[2020-02-23] MEDS: PRENATAL VITAMIN W DHA CAPSULE PO SCH (10:35)
[2020-02-23] MEDS: DOCUSATE SODIUM 100 MG CAPSULE PO SCH ×2 (10:36→17:31)
[2020-02-23] MEDS: SIMETHICONE 80 MG TAB.CHEW PO PRN (10:38)
--- NOTE | 2020-02-23 10:47 | PDOC PROGRESS REPORT ---
Subjective-OB Progress Note for:: 02/23/20 Subjective: Pt doing well, no concerns. She reports light bleeding, reg diet and voiding w/o difficulty. Physical Exam (OB) Vital Signs: Temp Pulse Resp BP Pulse Ox 98.0 F 98 18 101/50 L 100 02/23/20 08:00 02/23/20 08:00 02/23/20 08:00 02/23/20 08:00 02/23/20 08:00 Intake & Output 02/22/20 02/23/20 02/24/20 06:59 06:59 06:59 Intake Total 1229 340 Output Total 2550 Balance 1229 -2550 340 Weight 72.688 kg - Dressing Removed: No Incision: Open, Well Approximated Closure Type: Surgical Glue - Maternal Morbidity 59. Maternal Morbidity (serious complications experinced by the mother associated with labor and delivery: None of the above - Lochia Lochia Amount: Scant < 10 ml Lochia Color: Rubra/Red - Abdomen Description: Soft Hernia Present: No Fundal Description: Firm, Midline Fundal Height: u/u - u/2 Objective-Diagnostic Laboratory: 02/22/20 07:21 Assessment and Plan(PN) - Assessment and Plan (1) delivery, delivered, current hospitalization Is this a current diagnosis for this admission?: Yes (2) Non-reassuring heart rate or rhythm affecting management of fetus Is this a current diagnosis for this admission?: Yes - Time Spent with Patient Time with patient: Less than 15 minutes Medications reviewed and adjusted accordingly: Yes - Disposition Anticipated Discharge Disposition: Home, Self Care Anticipated Discharge Timeframe: within 24 hours
[2020-02-23] MEDS: OXYCODONE-ACETAMINOPHEN 5-325 MG TABLET PO PRN ×3 (12:11→20:39)
[2020-02-24] MEDS: IBUPROFEN 800 MG TABLET PO SCH ×2 (06:02→13:05)
[2020-02-24] MEDS: OXYCODONE-ACETAMINOPHEN 5-325 MG TABLET PO PRN (07:53)
[2020-02-24] MEDS: DOCUSATE SODIUM 100 MG CAPSULE PO SCH (09:39)
[2020-02-24] MEDS: PRENATAL VITAMIN W DHA CAPSULE PO SCH (09:39)
--- NOTE | 2020-02-24 11:30 | PDOC DISCHARGE SUMMARY ---
Impression - Admit/DC Date/PCP Admission Date/Primary Care Provider: 02/21/20 12:20 CHASTITY KWOK MD Discharge Date: 02/24/20 - Discharge Diagnosis (1) delivery, delivered, current hospitalization Is this a current diagnosis for this admission?: Yes (2) Non-reassuring heart rate or rhythm affecting management of fetus Is this a current diagnosis for this admission?: Yes - Additional Information Discharge Diet: Regular Discharge Activity: Balance Activity w/Rest, No Lifting Over 10 Pounds, Pelvic Rest, No tub bath Referrals: CHASTITY KWOK MD [Primary Care Provider] - Prescriptions: Ibuprofen [Motrin 800 mg Tablet] 800 mg PO Q8HP PRN #60 tablet PRN Reason: Oxycodone HCl/Acetaminophen [Percocet 5-325 mg Tablet] 1 tab PO Q4HP PRN #30 tablet PRN Reason: Home Medications: Pnv 102/Iron/Folate 1/Dss/Dha [Vitafol Fe+ Docusate Combo Pck] 1 each PO DAILY 02/16/20 Ibuprofen [Motrin 800 mg Tablet] 800 mg PO Q8HP PRN #60 tablet 02/24/20 Oxycodone HCl/Acetaminophen [Percocet 5-325 mg Tablet] 1 tab PO Q4HP PRN #30 tablet 02/24/20 Hospital Course 59. Maternal Morbidity (serious complications experinced by the mother associated with labor and delivery: None of the above Results Laboratory Results: WBC 7.9 10^3/uL (4.0-10.5) 02/22/20 07:21 RBC 3.27 10^6/uL (3.72-5.28) L 02/22/20 07:21 Hgb 11.0 g/dL (12.0-15.5) L D 02/22/20 07:21 Hct 30.8 % (36.0-47.0) L 02/22/20 07:21 MCV 94 fl (80-97) 02/22/20 07:21 MCH 33.6 pg (27.0-33.4) H 02/22/20 07:21 MCHC 35.6 g/dL (32.0-36.0) 02/22/20 07:21 RDW 16.5 % (11.5-14.0) H 02/22/20 07:21 Plt Count 133 10^3/uL (150-450) L 02/22/20 07:21 Lymph % (Auto) 24.3 % (13-45) 02/21/20 12:49 Swisher % (Auto) 8.9 % (3-13) 02/21/20 12:49 Eos % (Auto) 1.2 % (0-6) 02/21/20 12:49 Baso % (Auto) 0.4 % (0-2) 02/21/20 12:49 Absolute Neuts (auto) 4.9 10^3/uL (1.7-8.2) 02/21/20 12:49 Absolute Lymphs (auto) 1.8 10^3/uL (0.5-4.7) 02/21/20 12:49 Absolute Monos (auto) 0.7 10^3/uL (0.1-1.4) 02/21/20 12:49 Absolute Eos (auto) 0.1 10^3/uL (0.0-0.6) 02/21/20 12:49 Absolute Basos (auto) 0.0 10^3/uL (0.0-0.2) 02/21/20 12:49 Seg Neutrophils % 65.2 % (42-78) 02/21/20 12:49 Urine Color YELLOW 02/21/20 10:02 Urine Appearance CLEAR 02/21/20 10:02 Urine pH 6.0 (5.0-9.0) 02/21/20 10:02 Ur Specific [place] 1.011 02/21/20 10:02 Urine Protein NEGATIVE mg/dL (NEGATIVE) 02/21/20 10:02 Urine Glucose (UA) NEGATIVE mg/dL (NEGATIVE) 02/21/20 10:02 Urine Ketones NEGATIVE mg/dL (NEGATIVE) 02/21/20 10:02 Urine Blood NEGATIVE (NEGATIVE) 02/21/20 10:02 Urine Nitrite NEGATIVE (NEGATIVE) 02/21/20 10:02 Urine Bilirubin NEGATIVE (NEGATIVE) 02/21/20 10:02 Urine Urobilinogen 2.0 mg/dL (<2.0) H 02/21/20 10:02 Ur Leukocyte Esterase TRACE (NEGATIVE) H 02/21/20 10:02 Urine Ascorbic Acid NEGATIVE (NEGATIVE) 02/21/20 10:02 Urine Opiates Screen NEGATIVE 02/21/20 10:02 Urine Methadone Screen NEGATIVE 02/21/20 10:02 Ur Barbiturates Screen NEGATIVE 02/21/20 10:02 Ur Phencyclidine Scrn NEGATIVE 02/21/20 10:02 Ur Amphetamines Screen NEGATIVE 02/21/20 10:02 U Benzodiazepines Scrn NEGATIVE 02/21/20 10:02 Urine Cocaine Screen NEGATIVE 02/21/20 10:02 U Marijuana (THC) Screen NEGATIVE 02/21/20 10:02 RPR NONREACTIVE (NONREACTIVE) 02/21/20 12:49 Blood Type O POSITIVE 02/21/20 12:49 Antibody Screen NEGATIVE 02/21/20 12:49 Plan Plan of Treatment: follow up in one week at [facility] for incision check
[2020-02-24 11:51] VITALS: BP 110/58
== END 2020-02-24 13:11 | disposition home or self-care (01) | DRG 786 ==
LOC: LC 09:41 → LR 12:20 → 2S 02-22 03:40
PROVIDERS: ADMIT Obstetrics & Gynecology; ATTEND Obstetrics & Gynecology
PROC: 10D00Z1 Extraction of Products of Conception, Low, Open Approach (ICD-10-PCS; principal; 2020-02-21)
DX: O76 Abnormality in fetal heart rate and rhythm complicating labor and delivery (principal); O41.1230 Chorioamnionitis, third trimester, not applicable or unspecified; Z03.818 Encounter for observation for suspected exposure to other biological agents ruled out; Z3A.39 39 weeks gestation of pregnancy; Z37.0 Single live birth
CPT/HCPCS: 1967; 1968; 36415; 80307; 81005; 85025; 85027; 86592; 86850; 86900; 86901; 88307; 94760; 94799; 99140; J0131; J0690; J1885; J2250; J2270; J2405; J2590; J2795; J3010; J3490

== ENCOUNTER 2020-03-29 22:40 | Emergency (ER) | payer MEDICAID ==
[2020-03-29] MEDS ORDERED: ACETAMINOPHEN 325 MG TABLET PO ONE (23:31)
--- NOTE | 2020-03-29 23:33 | ER Document Report ---
ED Medical Screen (RME) - General Chief Complaint: Flu Symptoms Stated Complaint: LOST OF TASTE/SMELL,FEVER,CHILLS,BODY ACHES Time Seen by Provider: 03/29/20 23:30 Primary Care Provider: CHASTITY KWOK MD [Primary Care Provider] - Follow up as needed Notes: Patient is a 19-year-old female who presents emergency department with a chief complaint of fever. Patient states that she has having cough, congestion, loss of taste and smell with some shortness of breath. Patient denies sick contacts. TRAVEL OUTSIDE OF THE [place] IN LAST 30 DAYS: No - Related Data Allergies/Adverse Reactions: No Known Allergies Allergy (Verified 03/29/20 23:16) Home Medications: NIFEDIPEN Past Medical History - Social History Frequency of alcohol use: None Drug Abuse: None Past Surgical History: Reports: Hx Section, Hx Cholecystectomy - Immunizations Immunizations up to date: Yes Hx Diphtheria, Pertussis, Tetanus Vaccination: Yes Physical Exam - Vital signs Vitals: Temp Pulse Resp BP Pulse Ox 102.7 F H 101 H 18 117/71 98 03/29/20 22:49 03/29/20 22:49 03/29/20 22:49 03/29/20 22:49 03/29/20 22:49 Course - Re-evaluation Re-evalutation: 03/29/20 23:33 Patient did this morning 2.7 in triage. We will give the patient Tylenol. Will initiate basic labs, test for Covid, influenza and give IV fluids. I have greeted and performed a rapid initial assessment of this patient. A comprehensive ED assessment and evaluation of the patient, analysis of test results and completion of the medical decision making process will be conducted by additional ED providers. - Vital Signs Vital signs: Temp Pulse Resp BP Pulse Ox 102.7 F H 101 H 18 117/71 98 03/29/20 22:49 03/29/20 22:49 03/29/20 22:49 03/29/20 22:49 03/29/20 22:49 Doctor's Discharge - Discharge Referrals: CHASTITY KWOK MD [Primary Care Provider] - Follow up as needed
[2020-03-30 00:09] LABS: ABSOLUTE LYMPHOCYTES (AUTO) 1.7 10^3/uL (0.5-4.7); ABSOLUTE MONOCYTES (AUTO) 0.8 10^3/uL (0.1-1.4); ABSOLUTE NEUT (AUTO) 7.2 10^3/uL (1.7-8.2); BASOPHILS % (AUTO) 0.4 % (0-2); EOSINOPHILS % (AUTO) 0.4 % (0-6); HEMATOCRIT 34.3 % (36.0-47.0); HEMOGLOBIN 12.6 g/dL (12.0-15.5); LYMPHOCYTES % (AUTO) 17.3 % (13-45); MEAN CORPUSCULAR HEMOGLOBIN 32.9 pg (27.0-33.4); MEAN CORPUSCULAR HGB CONC 36.7 g/dL (32.0-36.0); MEAN CORPUSCULAR VOLUME 90 fl (80-97); MONOCYTES % (AUTO) 8.4 % (3-13); PLATELET COUNT 283 10^3/uL (150-450); RED BLOOD COUNT 3.82 10^6/uL (3.72-5.28); RED CELL DISTRIBUTION WIDTH 14.3 % (11.5-14.0); SEGMENTED NEUTROPHILS % (AUTO) 73.5 % (42-78); TOTAL CELLS COUNTED % (AUTO) 100 %; WHITE BLOOD COUNT 9.8 10^3/uL (4.0-10.5)
[2020-03-30 00:22] LABS: ALBUMIN 3.8 g/dL (3.5-5.0); ALKALINE PHOSPHATASE 144 U/L (38-126); ANION GAP 13 (5-19); ASPARTATE AMINO TRANSFERASE 28 U/L (14-36); BILIRUBIN,DIRECT 0.4 mg/dL (0.0-0.4); BLOOD UREA NITROGEN 11 mg/dL (7-20); CALCIUM 9.2 mg/dL (8.4-10.2); CARBON DIOXIDE 27 mmol/L (22-30); CHLORIDE 96 mmol/L (98-107); GLUCOSE 103 mg/dL (75-110); POTASSIUM 3.6 mmol/L (3.6-5.0)
--- NOTE | 2020-03-30 00:27 | RADIOLOGY REPORT (SQ) ---
CLINICAL INDICATION: COUGH, SHORTNESS OF BREATH. TECHNIQUE: A single portable AP view was obtained of the chest at 0001 hours. COMPARISON: None. FINDINGS: The cardiomediastinal silhouette is normal. The lungs definite mild interstitial prominence. No focal airspace disease. No evidence of effusion or pneumothorax. The visualized bones are unremarkable. IMPRESSION: Mild interstitial prominence. No focal airspace disease.
[2020-03-30 00:29] LABS: A TYPE INFLUENZA AG NEGATIVE (NEGATIVE); B INFLUENZA AG NEGATIVE (NEGATIVE)
[2020-03-30 00:30] LABS: APPEARANCE,URINE SLIGHTLY-CLOUDY; BILIRUBIN,URINE NEGATIVE (NEGATIVE); COLOR,URINE YELLOW; GLUCOSE, URINE NEGATIVE (NEGATIVE); KETONES,URINE NEGATIVE (NEGATIVE); LEUKOCYTE ESTERASE,URINE MODERATE (NEGATIVE); NITRITE,URINE NEGATIVE (NEGATIVE); PROTEIN,URINE 30 mg/dL (NEGATIVE); URINE SPECIFIC GRAVITY 1.012
[2020-03-30] MEDS ORDERED: DOXYCYCLINE HYCLATE 100 MG TABLET PO ONE (04:40)
[2020-03-30] MEDS ORDERED: DEXAMETHASONE SOD PHOS INJ 10 MG/1 ML VIAL IV ONE (04:40)
--- NOTE | 2020-03-30 04:47 | ER Document Report ---
ED Flu Like - General Chief Complaint: Flu Symptoms Stated Complaint: LOST OF TASTE/SMELL,FEVER,CHILLS,BODY ACHES Time Seen by Provider: 03/29/20 23:30 Primary Care Provider: CHASTITY KWOK MD [ACTIVE STAFF] - Follow up as needed Notes: Patient is a 19-year-old female that comes emergency department for chief compl aint of fever, chills, body aches, cough, ingestion, loss of taste and smell, and intermittent sensation of shortness of breath especially with cough. Symptoms have been present about 1 week now. She denies abdominal pain, chest pain, vomiting, headache, sore throat. She denies any obvious sick contacts. She states she takes nifedipine for high blood pressure that developed during , she is 1 month status post vaginal delivery. She is not breast- feeding. She denies any other medications or diagnosed medical history. She denies smoking, alcohol, recreational drugs. TRAVEL OUTSIDE OF THE [place] IN LAST 30 DAYS: No - Related Data Allergies/Adverse Reactions: No Known Allergies Allergy (Verified 03/29/20 23:16) Home Medications: NIFEDIPEN Past Medical History - General Information source: Patient - Social History Smoking Status: Former Smoker Frequency of alcohol use: None Drug Abuse: None Lives with: Family Family History: Reviewed & Not Pertinent Past Surgical History: Reports: Hx Section, Hx Cholecystectomy - Immunizations Immunizations up to date: Yes Hx Diphtheria, Pertussis, Tetanus Vaccination: Yes Review of Systems - Review of Systems Constitutional: See HPI EENT: See HPI Cardiovascular: No symptoms reported Respiratory: See HPI Gastrointestinal: No symptoms reported Genitourinary: No symptoms reported Female Genitourinary: No symptoms reported Musculoskeletal: No symptoms reported Skin: No symptoms reported Hematologic/Lymphatic: No symptoms reported Neurological/Psychological: No symptoms reported Physical Exam - Vital signs Vitals: Temp Pulse Resp BP Pulse Ox 102.7 F H 101 H 18 117/71 98 03/29/20 22:49 03/29/20 22:49 03/29/20 22:49 03/29/20 22:49 03/29/20 22:49 - Notes Notes: GENERAL: Alert, interacts well. No acute distress. HEAD: Normocephalic, atraumatic. EYES: Pupils equal, round, and reactive to light. Extraocular movements intact. ENT: Oral mucosa moist, tongue midline. Oropharynx unremarkable. Airway patent. Nares patent, sinuses non-tender, ear canals unremarkable, TM's intact. NECK: Full range of motion. Supple. Trachea midline. No lymphadenopathy. No nuchal rigidity LUNGS: Clear to auscultation bilaterally, no wheezes, rales, or rhonchi. No respiratory distress. Non-tender chest wall. HEART: Regular rate and rhythm. No murmur ABDOMEN: Soft, non-tender. Non-distended. EXTREMITIES: Moves all 4 extremities spontaneously. No edema, normal radial and dorsalis pedis pulses bilaterally. No cyanosis. BACK: no cervical, thoracic, lumbar midline tenderness. No saddle anesthesia, normal distal neurovascular exam. Moves all extremities in full range of motion. NEUROLOGICAL: Alert and oriented x3. Normal speech. Cranial nerves II through XII grossly intact. Strength 5/5 in all extremities. PSYCH: Normal affect, normal mood. SKIN: Warm, dry, normal turgor. No rashes or lesions noted. Course - Re-evaluation Re-evalutation: Patient was initially febrile but otherwise her vital signs are unremarkable. She did become mildly hypotensive when sleeping and lying on her side. She ambulates without dizziness or tachycardia. She has no respiratory distress, she has clear lung sounds, no hypoxia. However her reported symptoms are very suggestive of COVID-19. She has been tested for this. I did review her work-up from triage including CBC, chemistry, urinalysis, chest x-ray. This indicates probable urinary tract infection although I do not suspect this to be the source of the fever based on her evaluation. Chest x-ray borderline with some mild interstitial prominence but no overt abnormality. I discussed details with patient at length. Discussed COVID-19 expectations and recommendations, patient will be treated with doxycycline for coverage of both potential UTI and pneumonia, she was given dexamethasone for her symptoms here, she will be discharged with return cautions. Patient states appreciation and agreement. Stable and well-appearing at time of discharge. - Vital Signs Vital signs: Temp Pulse Resp BP Pulse Ox 98.4 F 65 18 94/62 L 100 03/30/20 02:12 03/30/20 05:00 03/30/20 02:12 03/30/20 05:00 03/30/20 02:12 - Laboratory Result Diagrams: 03/29/20 23:50 03/29/20 23:50 Laboratory results interpreted by me: 03/29/20 03/29/20 03/29/20 23:50 23:50 23:50 Hct 34.3 L MCHC 36.7 H RDW 14.3 H Sodium 136.4 L Chloride 96 L Alkaline Phosphatase 144 H Urine Protein 30 H Urine Blood LARGE H Urine Urobilinogen 4.0 H Ur Leukocyte Esterase MODERATE H Discharge - Discharge Clinical Impression: Person under investigation for COVID-19, Cough, Body aches Fever Qualifiers: Fever type: unspecified Qualified Code(s): R50.9 - Fever, unspecified Condition: Stable Disposition: HOME, SELF-CARE Instructions: COVID-19 Guidance for Persons Under Investigation Additional Instructions: Your chest x-ray is borderline for possible pneumonia, your urine shows an infection. Based on your evaluation I strongly suspect that you have COVID-19 which is causing your symptoms. You have been treated with Decadron, we are starting you on an antibiotic to treat the urinary tract infection and prevent a bacterial pneumonia from developing while you are recovering from the viral infection. Take Tylenol and ibuprofen for fever/chills, drink plenty of fluids, rest. Please quarantine while we are awaiting your official results, you will be contacted with these. See additional instructions below. Come back if you worsen including chest pain, difficulty breathing, vomiting, or any other concerning or worsening symptoms. As a person under investigation for COVID-19, the [place] Department of Health and Human Services (division on public health) advises you to adhere to the following guidance until your test results are reported to you. If your test result is positive, you will receive additional information from your provider a nd your local health department at that time. Remain at home until you are cleared by the health provider or public health authorities. Keep a log of visitors to your home, notify any visitors to your home of your isolation status. If you plan to move to a new address or leave the [facility], notify the local health department in your [facility]. Call your Doctor or seek care if you have an urgent medical need. Before seeking medical care, call him to get instructions from the provider before arriving at the medical office, clinic, or hospital. Notify them that you are being tested for the virus (COVID-19) so that arrangements can be made, as necessary, to prevent transmission to others in the healthcare setting. Next, notify the local health department in your county. If a medical emergency arises and you need to call 911, inform the first responders that you are being tested for the virus that causes COVID-19. Next, notify the local health department in your county. Prescriptions: Doxycycline Hyclate [Vibramycin 100 mg Tablet] 100 mg PO BID 7 Days #14 tablet Referrals: CHASTITY KWOK MD [ACTIVE STAFF] - Follow up as needed
[2020-03-30 05:24] VITALS: BP 94/62
== END 2020-03-30 05:25 | disposition home or self-care (01) ==
LOC: ER 22:40
DX: O86.4 Pyrexia of unknown origin following delivery (principal); O90.89 Other complications of the puerperium, not elsewhere classified; R52 Pain, unspecified; R05 Cough; R43.8 Other disturbances of smell and taste; O13.5 Gestational [pregnancy-induced] hypertension without significant proteinuria, complicating the puerperium; Z79.899 Other long term (current) drug therapy; Z20.828 Contact with and (suspected) exposure to other viral communicable diseases; Z87.891 Personal history of nicotine dependence
CPT/HCPCS: 99284; 96374; 36415; 87086; 85025; 87635; 81025; 87088; 80053; 81001; 87186; 87804; 71045; J3490 ×2; J1100; C9803